=== PATIENT | male | born 1965 | race Caucasian/White ===

== ENCOUNTER 2023-02-25 10:50 | Day surgery (SDC) | payer OTHER ==
[2023-02-25] MEDS ORDERED: Ringers Lactate 1,000 ML IV ONE (11:30)
[2023-02-25] MEDS ORDERED: MIDAZOLAM HCL 2 MG/2 ML INJ ONE (13:35)
[2023-02-25] MEDS ORDERED: propofoL 200 MG/20 ML VIAL IV ONE (13:35)
[2023-02-25] MEDS ORDERED: FENTANYL CITR 100 MCG/2 ML ONE (13:35)
[2023-02-25] MEDS ORDERED: ROCURONIUM 50 MG/5 ML VIAL IV ONE ×2 (13:36→15:41)
[2023-02-25] MEDS ORDERED: ONDANSETRON 4 MG/2 ML VIAL ONE (13:36)
[2023-02-25] MEDS ORDERED: LIDOCAINE 2% MPF 5 ML VIAL ONE (13:36)
[2023-02-25] MEDS: CEFAZOLIN SODIUM 2 GM/VIAL ONE ×2 (14:05→14:16)
[2023-02-25] MEDS ORDERED: LIDOCAINE HCL/EPINEPHRINE 20 ML MDV ONE (14:08)
[2023-02-25] MEDS ORDERED: OXYMETAZOLINE HCL 0.05% 15ML NAS ONE (14:08)
[2023-02-25] MEDS ORDERED: NA CHLORIDE 0.9% 250 ML ONE (14:08)
[2023-02-25] MEDS ORDERED: BACITRACIN OINTMENT 14 GM TUBE TOP ONE ×2 (14:08→15:49)
[2023-02-25] MEDS ORDERED: dexAMETHasone 10 MG/ML VIAL ONE (14:59)
[2023-02-25] MEDS ORDERED: SUGAMMADEX SODIUM 200 MG/2 ML VIAL IV ONE (15:21)
[2023-02-25] MEDS ORDERED: Phenylephrine HCl 10 MG/ML 1 ML VIAL ONE (15:33)
[2023-02-25] MEDS ORDERED: KETOROLAC 30 MG/ML INJ ONE (16:02)
[2023-02-25] MEDS: FENTANYL CITR 100 MCG/2 ML ONE ×2 (16:35→16:40)
[2023-02-25] MEDS ORDERED: HYDROCODONE/APAP 10/325 TAB ONE (17:31)
[2023-02-25 17:52] VITALS: BP 138/72; TEMP 97.1; O2SAT 96
--- NOTE | 2023-02-28 13:55 | OP ---
Date of Procedure: 02/25/2023 Surgeon: PAULA ROSARIO Preoperative Diagnoses: 1.Right nasal septal deviation. 2.Bilateral inferior turbinate hypertrophy with nasal obstruction. 3.Inferior turbinate hypertrophy, bilateral 3/4 and short nose with bilateral internal nasal valve c ollapse. Postoperative Diagnoses: 1.Right nasal septal deviation. 2.Bilateral inferior turbinate hypertrophy with nasal obstruction. 3.Inferior turbinate hypertrophy, bilateral 3/4 and short nose with bilateral internal nasal valve c ollapse. Procedures: 1.Bilateral nasal endoscopy. 2.Septoplasty. 3.Bilateral submucosal ablation of inferior turbinates. 4.Bilateral placement of Latera implant device. 5.Bilateral nasal polypectomies. Anesthesia: General endotracheal anesthesia was administered. I also infiltrated approximately 10 m L of 1% lidocaine into bilateral nasal septal mucosa, bilateral inferior turbinate mucosa and bilater al nasal sidewall soft tissue. Estimated Blood Loss: Approximately 10-15 mL. Specimens: Septal cartilage submitted. Findings: Moderate to severe right nasal septal deviation extending from a caudal spur noted inferio rly and then significant superior deviation noted at the mid septal to posterior septal areas. Bilat eral nasal polyps visualized posteriorly, right worse than left, causing nasopharyngeal obstruction a t the posterior choanae. Complications: None. Disposition: Stable. The patient tolerated the procedure well. Indication For Procedure: The patient is a pleasant 57-year-old male who presented to my outpatient clinic with chronic bilateral nasal obstruction, right worse than left, secondary to septal deviation , bilateral nasal valve collapse and bilateral inferior turbinate hypertrophy. Examination in my off ice revealed significant nasal obstruction, right worse than left and a CT scan also was obtained, wh ich confirmed the findings. These were indications to bring the patient to operative suite for the a maximiliano-mentioned procedure. He understood, all questions were answered. Risks versus benefits and com plications were explained in detail and a consent form was signed which was placed on the chart. Description Of Procedure: The patient was transferred from the preoperative holding area to the oper ative suite by Department of Anesthesia, placed on the operating table supine, sedated, intubated in normal fashion. Table was rotated to 180 degrees and a head rest was placed. I infiltrated bilatera l nasal sidewall, inferior turbinate mucosa and bilateral septal mucosa with approximately 10 mL of 1 % lidocaine with 1:100,000 epinephrine. Afrin-soaked nasal pledgets were introduced into bilateral n linsey cavities and the patient was sterilely prepped and draped. The pledgets were removed and I utilized a 0-degree rigid nasal endoscope and passed it along the adair or of bilateral nasal cavities. The patient had significant right nasal septal deviation extending t he full length of the septum, but worse in the mid septal region. Patient also had an inferior septa l spur located on the right. Examination of the right nasal cavity demonstrated improved patency com pared to right. Bilateral inferior turbinates were hypertrophic 3/4 and then interestingly at the po sterior choanae, I noticed that the patient had several polyps located near the septum and posterior edge of the bilateral inferior turbinates. Attention was first placed to the septum in which a modif ied Zeferino incision was made into the left nasal septal mucosa and I elevated the mucosa off the car tilage and bone and then I made a crossover incision utilizing the #15 blade scalpel, which was used initially to incise the mucosa. I then elevated the right nasal septal mucosa and the cartilage of b one were isolated with a longer nasal speculum. I then made superior, posterior, and inferior cuts t o remove a large bulk of the deviated septum. I had to use a [place] elevator to remove the spurs. On e was located caudal and inferior and another spur was located more posterior inferior. Once these o bstructive pieces were removed, I then reapproximated the nasal septal mucosa with 4-0 plain gut sutu re in a box like fashion followed by mucosal incisional edge closure with 4-0 plain gut suture in a c ontinuous running fashion. Next, my attention was placed to the inferior turbinates in which submucosal pockets were created wit h the Coblation wand and then utilizing a setting of 7 for ablation and 3 of coagulation, I performed right submucosal ablation of the inferior turbinate. I then incised the left inferior turbinate muc janelle utilizing the Coblation blade and created a pocket and then I performed a left submucosal ablatio n of the inferior turbinate. I noticed that posteriorly, the patient had several large polyps in the right worse than the left obstructing the posterior choanae. Thus, I used obliquely forceps to carole ve those and then cauterized the excisional edges utilizing suction Bovie on a setting of 20 for coag ulation. The Later implant position guide was used to silviano the surgical trajectory using a standard surgical pin. The holes provided on the implant position guide were used for marking the base of the implants for tip and the spherical end of the atraumatic proximal tip. Placement of right Latera implant: The right naris and nasal cavity were examined. Under direct vis ualization, the delivery of device cannula was inserted through the nasal mucosa of the lateral wall within the nasal cavity through the margin of the nostril. Care was taken to provide the maximum dis tance between the cannula insertion point and the target position of the proximal tip of the implant to ensure the implant was fully embedded within the tissue. The cannula was passed along the center of the thickness of the lateral wall to avoid piercing medially through the mucosa lateral through th e skin as it traversed the wall to the target location. When the cannula reached the bony cartilagin ous junction, the cannula was passed over the maxillary bone to the target depth. Using the implant fork orientation features on the distal end of the delivery device as a reference for fork orientatio n, the delivery device rotation position about its access was verified as appropriate to deliver the forks parallel to the underlying bone. The delivery device remained fixed in position while the plun virgie was slowly advanced to a fully depressed position. The implant forks were driven approximately 4 mm into the tissue beyond the distal tip of the cannula. After depressing the plunger, the cannula was slowly withdrawn from the tissue. Placement of left Latera implant: The left naris and nasal cavity were examined. Under direct visua lization, the delivery of device cannula was inserted through the nasal mucosa of the lateral wall wi thin the nasal cavity through the margin of the nostril. Care was taken to provide the maximum dista nce between the cannula insertion point and the target position of the proximal tip of the implant to ensure the implant was fully embedded within the tissue. The cannula was passed along the center of the thickness of the lateral wall to avoid piercing medially through the mucosa lateral through the skin as it traversed the wall to the target location. When the cannula reached the bony cartilaginou s junction, the cannula was passed over the maxillary bone to the target depth. Using the implant fo rk orientation features on the distal end of the delivery device as a reference for fork orientation, the delivery device rotation position about its access was verified as appropriate to deliver the fo rks parallel to the underlying bone. The delivery device remained fixed in position while the plunge r was slowly advanced to a fully depressed position. The implant forks were driven approximately 4 m m into the tissue beyond the distal tip of the cannula. After depressing the plunger, the cannula wa s slowly withdrawn from the tissue. Surgicel was placed into bilateral nasal cavities and antibiotic coated Huber splints were inserted i nto bilateral nasal cavities after being cut down to size and secured at the caudal septum with a 2-0 Prolene suture. The patient tolerated the procedure well and he was transferred back to Department of Anesthesia in s table condition. He was subsequently awakened, extubated, and transferred to postoperative care unit in stable condition and discharged home. He was discharged home on antibiotic and analgesic medication, will follow up in 7-10 days or sooner if needed. YAQUELIN/CHANELL Voice ID: [id number] Report ID: [id number]
== END 2023-02-25 17:48 | disposition home or self-care (01) ==
LOC: OR 10:50
PROVIDERS: ATTEND Otolaryngology Facial Plastic Surgery
PROC: 09QK8ZZ Repair Nasal Mucosa and Soft Tissue, Via Natural or Artificial Opening Endoscopic (ICD-10-PCS; 2023-02-25)
PROC: 09JK8ZZ Inspection of Nasal Mucosa and Soft Tissue, Via Natural or Artificial Opening Endoscopic (ICD-10-PCS; principal; 2023-02-25 11:30)
PROC: 09SM4ZZ Reposition Nasal Septum, Percutaneous Endoscopic Approach (ICD-10-PCS; 2023-02-25 11:30)
DX: J34.2 Deviated nasal septum (principal); J34.3 Hypertrophy of nasal turbinates; J34.89 Other specified disorders of nose and nasal sinuses; I10 Essential (primary) hypertension; E78.00 Pure hypercholesterolemia, unspecified; K21.9 Gastro-esophageal reflux disease without esophagitis; E66.9 Obesity, unspecified; G47.33 Obstructive sleep apnea (adult) (pediatric); Z68.35 Body mass index [BMI] 35.0-35.9, adult
CPT/HCPCS: 30520; 30802; 30468; J2704; J2371; J2001; J2250; J3010 ×2; J1100; J2405; J7120; J7050